=== PATIENT | female | born 1950 | race Caucasian/White ===

== ENCOUNTER 2023-10-02 10:58 | Emergency (ER) | payer OTHER ==
[~2023-10-02] VITALS: Ht 167.6 cm; Wt 58.1 kg
[2023-10-02 11:12] VITALS: BP_SYST 151; PULSE 66; RESP 22; TEMP 98.3; O2SAT 97
[2023-10-02 13:40] LABS: BASOPHILS % (AUTO) 0.3 % (0.0-2.0); EOSINOPHILS % (AUTO) 0.2 % (0.0-4.0); HEMOGLOBIN 12.7 g/dL (12.0-16.0); LYMPHOCYTES % (AUTO) 12.5 % (20.5-51.5); MEAN CORPUSCULAR HEMOGLOBIN 25 pg (27-31); MEAN CORPUSCULAR HGB CONC 34 % (32-36); MEAN CORPUSCULAR VOLUME 76 fL (79.0-98.0); MONOCYTES # (AUTO) 0.3 K/uL (0.0-1.0); NEUTROPHILS # (AUTO) 6.5 K/uL (1.8-7.7); PLATELET COUNT (AUTO) 293 K/uL (130-430); RED BLOOD CELL COUNT(AUTO) 5.03 MIL/uL (4.2-6.2); RED CELL DISTRIBUTION WIDTH 15.1 % (9.0-15.0); WHITE BLOOD COUNT (AUTO) 7.9 K/uL (4.8-10.8)
[2023-10-02 13:48] LABS: ANION GAP 10 (5-15); CALCIUM 9.9 mg/dL (8.4-11.0); CARBON DIOXIDE 29 mmol/L (23-29); CHLORIDE 104 mmol/L (98-107); CREATININE 0.78 mg/dL (0.55-1.30); GLUCOSE 102 mg/dL (74-106); POTASSIUM 3.7 mmol/L (3.5-5.1); SODIUM SERUM 143 mmol/L (136-145); UREA NITROGEN, BLOOD 9 mg/dL (8-21)
[2023-10-02 13:52] LABS: ALANINE AMINOTRANSFERASE 30 U/L (12-78); ALBUMIN 4.3 g/dL (3.4-4.8); ASPARTATE AMINOTRANSFERASE 23 U/L (10-37); BILIRUBIN,DIRECT 0.4 mg/dL (0.0-0.3); TOTAL BILIRUBIN 2.3 mg/dL (0.0-1.0); TOTAL PROTEIN, SERUM 8.3 g/dL (6.4-8.3)
[2023-10-02 16:44] LABS: BILIRUBIN,URINE NEGATIVE (NEGATIVE); CLARITY/URINE CLEAR (CLEAR); COLOR,URINE YELLOW (YELLOW); GLUCOSE,URINE NEGATIVE (NEGATIVE); KETONES,URINE 1+ (NEGATIVE); LEUKOCYTE ESTERASE ,URINE NEGATIVE (NEGATIVE); NITRITE, URINE NEGATIVE (NEGATIVE); PROTEIN URINE NEGATIVE (NEGATIVE); UROBILINOGEN,URINE 0.2 (0.2-1.0)
[2023-10-02 16:47] LABS: BLOOD, URINE TRACE (NEGATIVE)
[2023-10-02 17:05] LABS: BACTERIA,URINE RARE /HPF (None Seen); MUCUS,URINE 1+ /LPF (None Seen); RBC,URINE 0-3 /HPF (0-3); WBC,URINE 0-3 /HPF (0-3)
[2023-10-02 17:57] VITALS: BP_SYST 174; PULSE 83; RESP 19; TEMP 97.8; O2SAT 98
== END 2023-10-02 17:57 | disposition home or self-care (01) ==
LOC: SED 10:58
DX: R53.1 Weakness (principal); E11.9 Type 2 diabetes mellitus without complications; Z79.899 Other long term (current) drug therapy
CPT/HCPCS: 36415; 80048; 80076; 81000; 81001; 81015; 82962; 83735; 84484; 85025; 99285